=== PATIENT | male | born 1990 | race African-American/Black ===

== ENCOUNTER 2017-11-24 18:40 | Emergency (ER) | payer MEDICAID ==
[~2017-11-24] VITALS: Ht 170.2 cm; Wt 86.4 kg
[~2017-11-24 18:40] MED LIST: AMOXICILLIN875 MG PO; NO HOME MEDICATIONS; NORCO 325 MG-51 TAB PO
[2017-11-24 18:42] VITALS: BP 119/70; TEMP 98.5
[2017-11-24 19:20] LABS: BASO # 0.1 (0.0-0.2); BASO % 0.9 % (0.0-2.0); EOS # 0.3 (0.0-0.7); EOS % 4.9 % (0-4.0); GRAN # 3.6 (1.4-6.5); GRAN % 56.9 % (42.2-75.2); HEMATOCRIT 39.6 % (42.0-52.0); HEMOGLOBIN 13.8 g/dl (13.5-18.0); LYMPH # 1.4 (1.2-3.4); LYMPH % 22.5 % (20.0-51.0); MEAN CELL VOLUME 84 fl (80.0-100.0); MEAN CORPUSCULAR HEMOGLOBIN 29 pg (27.0-31.0); MEAN CORPUSCULAR HGB CONC 35 g/dl (33.0-37.0); MEAN PLATELET VOLUME 8.9 fl (7.4-10.4); MONO # 0.9 (0.1-0.6); MONO % 14.3 % (1.7-9.3); PLATELET COUNT 191 K/mm3 (130-400); RED BLOOD COUNT 4.73 M/mm3 (4.20-5.60); REDCELL DISTRIBUTION WIDTH-CV 12.8 % (11.5-14.5)
[2017-11-24 19:25] LABS: COLLECTION METHOD CLEAN CATCH
[2017-11-24 19:28] LABS: ALBUMIN 4.1 gm/dL (3.5-5.0); BILIRUBIN,TOTAL 0.7 mg/dL (0.0-1.0); CALCIUM 9.2 mg/dL (8.4-10.2); CREATININE, serum 1.14 mg/dL (0.66-1.25); POTASSIUM 3.7 mmol/L (3.4-5.0); TOTAL PROTEIN 7.3 gm/dL (6.4-8.2)
[2017-11-24 19:31] LABS: PH 7 (5-8); SQUAMOUS EPITHELIAL None Seen /hpf; URINE APPEARANCE Clear; URINE BACTERIA None Seen /hpf; URINE BILIRUBIN Negative (NEGATIVE); URINE BLOOD 3+ (NEGATIVE); URINE COLOR Straw; URINE GLUCOSE Negative (NEGATIVE); URINE KETONE Negative (NEGATIVE); URINE LEUKOCYTE ESTERASE Negative (NEGATIVE); URINE NITRATE Negative (NEGATIVE); URINE PROTEIN(semi-quant) Negative (NEGATIVE); URINE RBC 0-2 /hpf; URINE UROBILINOGEN Negative (NEGATIVE)
[2017-11-24 19:57] VITALS: PULSE 82
== END 2017-11-24 19:57 | disposition home or self-care (01) ==
LOC: COL.ER 18:40
PROVIDERS: Physician Assistant
DX: R31.9 Hematuria, unspecified (principal); F17.210 Nicotine dependence, cigarettes, uncomplicated

== ENCOUNTER 2018-02-01 18:49 | Emergency (ER) | payer MEDICAID ==
[~2018-02-01] VITALS: Ht 170.2 cm; Wt 86.4 kg
[2018-02-01 19:15] VITALS: BP 121/86; PULSE 71; TEMP 98.3
== END 2018-02-01 21:40 | disposition left against medical advice (07) ==
LOC: COL.ER 18:49
DX: K08.89 Other specified disorders of teeth and supporting structures (principal); H92.02 Otalgia, left ear

== ENCOUNTER 2018-11-23 05:20 | Emergency (ER) | payer MEDICAID ==
[~2018-11-23] VITALS: Ht 170.2 cm; Wt 81.8 kg
[2018-11-23 05:27] VITALS: BP 130/68; PULSE 90; TEMP 98.4
[2018-11-23] MEDS ORDERED: AMOXICILLIN 50500 MG PO (05:32)
== END 2018-11-23 06:00 | disposition home or self-care (01) ==
LOC: COL.ER 05:20
DX: J02.9 Acute pharyngitis, unspecified (principal)
CPT/HCPCS: J1100